=== PATIENT | female | born 1940 | race African-American/Black ===

== ENCOUNTER 2022-01-21 18:33 | Emergency (ER) | payer OTHER, MEDICAID ==
[~2022-01-21] VITALS: Ht 165.1 cm; Wt 100.0 kg
[2022-01-21 19:46] LABS: BASOPHILS % 1.3 % (0.0-2.0); EOSINOPHILS % 1.6 % (0.0-5.0); HEMATOCRIT. 41.8 % (36.0-48.0); LYMPHOCYTES % 48.1 % (20.0-50.0); MEAN CORPUSCULAR HEMOGLOBIN 31.6 pg (28.0-32.0); MEAN CORPUSCULAR VOLUME 94.2 fL (81.0-99.0); MEAN PLATELET VOLUME 8.3 fl (7.4-10.4); MONOCYTES % 11.1 % (2.0-8.0); NEUTROPHILS % 37.9 % (40.0-76.0); PLATELET 232 x1000/uL (130-400); RED BLOOD CELL COUNT 4.43 mill/uL (4.2-5.4); RED CELL DISTRIBUTION WIDTH 14.1 % (11.6-14.6)
[2022-01-21 19:58] LABS: CHLORIDE 105 mEq/L (98-107)
[2022-01-21] MEDS ORDERED: ASPIRIN 81MG TABLET PO ONE (20:30)
[2022-01-21] MEDS ORDERED: MECLIZINE 12.5MG TABLET PO ONE (20:30)
[2022-01-21] MEDS ORDERED: SODIUM CHLORIDE 0.9% 250 ML IV ONE (20:30)
[2022-01-21] MEDS ORDERED: ONDANSETRON HCL 4MG/2ML INJ IV ONE (20:30)
[2022-01-22] MEDS ORDERED: ONDANSETRON HCL 4MG/2ML INJ IV PRN (00:15)
[2022-01-22] MEDS ORDERED: CLONIDINE 0.1MG TABLET PO PRN (00:15)
[2022-01-22] MEDS ORDERED: ACETAMINOPHEN 325MG TABLET PO PRN ×2 (00:15)
[2022-01-22] MEDS ORDERED: MAGNESIUM/ALUMINUM HYDROXIDE/SIMETHICONE 30ML UDC PO PRN (00:15)
[2022-01-22] MEDS ORDERED: GUAIFENESIN 200MG/10ML SUGAR FREE UDC PO PRN (00:15)
[2022-01-22] MEDS ORDERED: IPRATROPIUM/ALBUTEROL 0.5-3(2.5)MG/3ML NEB HHN PRN (00:15)
[2022-01-22] MEDS ORDERED: ACETAMINOPHEN 650MG SUPP PR PRN ×2 (00:15)
[2022-01-22] MEDS ORDERED: HYDROCODONE/ACETAMINOPHEN 5/325MG TABLET PO PRN (00:15)
[2022-01-22] MEDS ORDERED: DOCUSATE SODIUM 100MG CAPSULE PO PRN (00:15)
[2022-01-22 00:55] VITALS: BP 136/69
[2022-01-22] MEDS ORDERED: LISINOPRIL 20MG TABLET PO SCH (09:00)
[2022-01-22] MEDS ORDERED: ASPIRIN 81MG EC TABLET PO SCH (09:00)
== END 2022-01-22 01:34 | disposition left against medical advice (07) ==
LOC: ER 18:33 → EDBEDREQ 19:56 → EDBEDREQTM 19:56 → EDBEDREQ 21:57 → ENRESERV 23:27 → ER 01-22 01:34 → CANBEDREQ 01-23 08:37
DX: R07.89 Other chest pain (principal); R42 Dizziness and giddiness; R55 Syncope and collapse; R53.1 Weakness; E11.9 Type 2 diabetes mellitus without complications
CPT/HCPCS: 36415; 70450; 71045; 80053; 83690; 83880; 84484; 85025; 93005; 96374; 99285; J2405; J7050; J8597; 96361